=== PATIENT | male | born 1980 | race African-American/Black ===

== ENCOUNTER 2016-03-19 15:32 | Emergency (ER) | payer MEDICAID ==
[~2016-03-19] VITALS: Ht 188 cm; Wt 86.0 kg
[2016-03-19 16:05] VITALS: BP 138/95
--- NOTE | 2016-03-19 18:30 | NUR ---
PATIENT LEFT WITHOUT BEING SEEN BY DR. KELLY. NO FURTHER CARE PROVIDED FOR PATIENT.
== END 2016-03-19 18:30 | disposition left against medical advice (07) ==
LOC: MED 15:32
DX: M54.5 Low back pain (principal); M79.604 Pain in right leg; Z53.21 Procedure and treatment not carried out due to patient leaving prior to being seen by health care provider

== ENCOUNTER 2016-03-20 21:33 | Emergency (ER) | payer MEDICAID ==
[~2016-03-20] VITALS: Ht 188 cm; Wt 86.2 kg
[2016-03-20 22:19] VITALS: BP 140/77
--- NOTE | 2016-03-20 22:51 | NUR ---
PATIENT AMBULATED TO ER BED 07
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
[2016-03-20] MEDS ORDERED: KETOROLAC 30 MG/ML VIAL IM ONE (23:50)
[2016-03-20] MEDS ORDERED: DIAZEPAM 5 MG TAB PO ONE (23:50)
--- NOTE | 2016-03-21 01:12 | NUR ---
Patient discharged with v/s stable. Written and verbal after care instructions given and explained. Patient verbalized understanding. Ambulatory with steady gait. All questions addressed prior to discharge. Advised to follow up with PMD.
[2016-03-21 01:13] VITALS: BP 135/78
== END 2016-03-21 01:13 | disposition home or self-care (01) ==
LOC: MED 21:33
DX: S33.5XXA Sprain of ligaments of lumbar spine, initial encounter (principal); V89.2XXA Person injured in unspecified motor-vehicle accident, traffic, initial encounter; Y93.89 Activity, other specified; Y92.89 Other specified places as the place of occurrence of the external cause; Y99.8 Other external cause status
CPT/HCPCS: 72100; 96372; 99284; J1885